=== PATIENT | male | born 1965 | race Caucasian/White ===

== ENCOUNTER → 2016-06-13 | Outpatient (CLI) | payer OTHER ==
[~2016-06-13] VITALS: Ht 170.2 cm; Wt 81.6 kg
[~2016-06-13] MED LIST: LIDOCAINE 2% INJ 100 MG/5 ML SDV (FOR ANES.) As Ordered ONE; NORC5TAB PO; NS 1,000 ML IV SCH; PROPOFOL 200 MG/20 ML VIAL As Ordered ONE; SENN1TAB2 PO
--- NOTE | 2016-06-13 08:24 | ROOR ---
Patient Name: Ezekiel Daniel Procedure Date: 06/13/2016 8:06 AM Date of : 1965 Age: 50 Room: [facility] [place] Gender: Male Note Status: Finalized Procedure: Colonoscopy Indications: Screening for colorectal malignant neoplasm Providers: Brock Simon DO Referring MD: 1. No Referring Physician 1. No Referring Physician, Admin. Requesting Provider: Medicines: Propofol per Anesthesia Complications: No immediate complications. Estimated blood loss: None. Procedure: Pre-Anesthesia Assessment: - Prior to the procedure, a History and Physical was performed, and patient medications and allergies were reviewed. The patient is competent. The risks and benefits of the procedure and the sedation options and risks were discussed with the patient. All questions were answered and informed consent was obtained. Patient identification and proposed procedure were verified by the physician, the nurse, the anesthesiologist and the residential gas heat technician in the endoscopy suite. Mental Status Examination: alert and oriented. Airway Examination: normal oropharyngeal airway and neck mobility. Respiratory Examination: clear to auscultation. CV Examination: normal. Prophylactic Antibiotics: The patient does not require prophylactic antibiotics. Prior Anticoagulants: The patient has taken no previous anticoagulant or antiplatelet agents. ASA Grade Assessment: II - A patient with mild systemic disease. After reviewing the risks and benefits, the patient was deemed in satisfactory condition to undergo the procedure. The anesthesia plan was to use monitored anesthesia care (MAC). Immediately prior to administration of medications, the patient was re-assessed for adequacy to receive sedatives. The heart rate, respiratory rate, oxygen saturations, blood pressure, adequacy of pulmonary ventilation, and response to care were monitored throughout the procedure. The physical status of the patient was re-assessed after the procedure. The Colonoscope was introduced through the anus and advanced to the cecum, identified by the appendiceal orifice, ileocecal valve and palpation. The colonoscopy was performed without difficulty. The patient tolerated the procedure well. Findings: The perianal exam findings include non-thrombosed internal hemorrhoids and internal hemorrhoids (Grade I). The exam was otherwise without abnormality on direct and retroflexion views. Impression: - Non-thrombosed internal hemorrhoids and internal hemorrhoids (Grade I) found on perianal exam. - The examination was otherwise normal on direct and retroflexion views. - No specimens collected. Recommendation: - Patient has a contact number available for emergencies. The signs and symptoms of potential delayed complications were discussed with the patient. Return to normal activities tomorrow. Written discharge instructions were provided to the patient. - Repeat colonoscopy in 5-10 years for screening purposes. - Return to my office PRN. Brock Simon DO 06/13/2016 8:24:47 AM This report has been signed electronically. Number of Addenda: 0 Note Initiated On: 06/13/2016 8:06 AM Estimated Blood Loss: Estimated blood loss: none.
[2016-06-13 08:45] VITALS: BP 133/81
== END ==
LOC: M OPP 07:31
PROVIDERS: ATTEND Surgery
DX: Z12.11 Encounter for screening for malignant neoplasm of colon (principal); K64.0 First degree hemorrhoids; R06.83 Snoring

== ENCOUNTER → 2018-08-20 | Outpatient (CLI) | payer OTHER ==
[~2018-08-20] MED LIST changes: -LIDOCAINE 2% INJ 100 MG/5 ML SDV (FOR ANES.) As Ordered ONE; +NORC1TAB4 PO; -NORC5TAB PO; -NS 1,000 ML IV SCH; -PROPOFOL 200 MG/20 ML VIAL As Ordered ONE
--- NOTE | 2018-08-21 07:12 | REP ---
Clinical : Bilateral inguinal pain. Technique: Real time klein scale ultrasound examination using linear high frequency transducer. Findings: Fat containing right inguinal hernia identified with a peritoneal defect measuring 1.9 cm diameter on Valsalva. There is evidence for prior left inguinal repair with mesh identified. A new small fat containing left inguinal hernia is also identified inferior to the mesh and peritoneal defect measures 1.5 cm maximal diameter on Valsalva. Impression: Evidence for bilateral fat containing inguinal hernias. Evidence of prior left inguinal repair with mesh. Electronically Signed by Dar Smiley MD 08/21/2018 07:04 A
== END ==
LOC: M RAD 06:36
PROVIDERS: ATTEND Surgery
DX: K40.21 Bilateral inguinal hernia, without obstruction or gangrene, recurrent (principal)

== ENCOUNTER → 2018-08-29 | Outpatient (REF) | payer OTHER ==
[2018-08-29 16:40] LABS: BASO # 0.1 10^3/uL (0.0-0.2); BASO % 0.7 % (0.0-1.0); EOS # 0.3 10^3/uL (0.0-0.50); EOS % 3.5 % (0.0-3.0); HEMATOCRIT 45.2 % (42.0-52.0); HEMOGLOBIN 15.6 g/dl (13.5-17.5); LYMPH # 2.4 10^3/uL (1.5-4.5); LYMPH % 28.3 % (24.0-44.0); MEAN CORPUSCULAR HEMOGLOBIN 31.8 pg (27.0-33.0); MEAN CORPUSCULAR HGB CONC 34.5 g/dl (32.0-36.5); MEAN CORPUSCULAR VOLUME 92.2 fl (80.0-96.0); MONO # 0.7 10^3/uL (0.0-0.8); MONO % 7.6 % (0.0-5.0); NEUTROPHILS # 5.1 10^3/uL (1.8-7.7); NEUTROPHILS % 59.4 % (36.0-66.0); PLATELET COUNT, AUTOMATED 312 10^3/uL (150-450); WHITE BLOOD COUNT 8.5 10^3/uL (4.0-10.0)
[2018-08-29 17:01] LABS: BLOOD UREA NITROGEN 12 MG/DL (7-18); CALCIUM LEVEL 9.7 MG/DL (8.5-10.1); CARBON DIOXIDE LEVEL 26 MEQ/L (21-32); CHLORIDE LEVEL 106 MEQ/L (98-107); CREATININE FOR GFR 1.15 MG/DL (0.70-1.30); GLOMERULAR FILTRATION RATE > 60.0 (>56); GLUCOSE, FASTING 104 MG/DL (70-100); POTASSIUM SERUM 4.6 MEQ/L (3.5-5.1); SODIUM LEVEL 140 MEQ/L (136-145)
== END ==
LOC: M LAB REF 16:09
PROVIDERS: ATTEND Family Medicine
DX: K21.9 Gastro-esophageal reflux disease without esophagitis (principal); K40.90 Unilateral inguinal hernia, without obstruction or gangrene, not specified as recurrent; R94.31 Abnormal electrocardiogram [ECG] [EKG]

== ENCOUNTER 2018-09-08 08:28 | Day surgery (SDC) | payer OTHER ==
[~2018-09-08] VITALS: Ht 170.2 cm; Wt 87.9 kg
[~2018-09-08 08:28] MED LIST changes: +LIDOCAINE 2% INJ 100 MG/5 ML SDV (FOR ANES.) As Ordered ONE; +LR 1,000 ML IV ONE; +MIDAZOLAM INJ 2 MG/2 ML VIAL (J2250) As Ordered ONE; -NORC1TAB4 PO; +NORC1TAB7 PO; +ONDANSETRON 4MG/2ML VIAL (J2405) As Ordered ONE; +PROPOFOL 200 MG/20 ML VIAL As Ordered ONE; +ROCURONIUM BROMIDE 50 MG/5 ML VIAL As Ordered ONE; -SENN1TAB2 PO; +SENN1TAB40 PO; +dexameTHASONE 4 MG/ML 1ML VIAL (J1100) As Ordered ONE; +fentaNYL 250 MCG/5 ML INJECTION (J3010) As Ordered ONE
[2018-09-08] MEDS ORDERED: BUPIVACAINE/EPIN 0.25% 30 ML VIAL As Ordered ONE (09:26)
[2018-09-08] MEDS ORDERED: KETOROLAC 60 MG/2 ML VIAL (J1885) As Ordered ONE (10:09)
[2018-09-08] MEDS ORDERED: SUGAMMADEX SODIUM 500 MG/5 ML VIAL (BRIDION) As Ordered ONE (10:35)
[2018-09-08] MEDS ORDERED: HYDROmorphone HCL 2 MG/ML 1ML VIAL (J1170) As Ordered ONE (10:41)
[2018-09-08] MEDS ORDERED: ROCURONIUM BROMIDE 50 MG/5 ML VIAL As Ordered ONE (10:47)
[2018-09-08] MEDS ORDERED: GLYCOPYRROLATE INJ 0.2 MG/ML 2 ML VIAL As Ordered ONE (11:44)
[2018-09-08] MEDS ORDERED: METOCLOPRAMIDE INJ 10MG/2ML VIAL (J2765) IV PRN (12:30)
[2018-09-08] MEDS ORDERED: ONDANSETRON 4MG/2ML VIAL (J2405) IV PRN (12:30)
[2018-09-08] MEDS ORDERED: LR 1,000 ML IV SCH (12:30)
[2018-09-08] MEDS ORDERED: MEPERIDINE INJ 25 MG/ML VIAL (J2175) IV PRN (12:30)
[2018-09-08] MEDS ORDERED: fentaNYL 100 MCG/2 ML INJECTION (J3010) IV PRN (12:30)
[2018-09-08] MEDS: PERCOCET 5MG/325MG TAB PO PRN ×2 (12:37→13:06)
[2018-09-08] MEDS ORDERED: NORCO, ANEXSIA 5/325MG TABLET (HYDROcodone/ACETAMINOPHEN) PO PRN (12:45)
--- NOTE | 2018-09-08 13:16 | RO ---
DATE OF PROCEDURE: 09/08/2018 PREOPERATIVE DIAGNOSIS: Recurrent left inguinal hernia. POSTOPERATIVE DIAGNOSIS: Recurrent left inguinal hernia. PROCEDURE: Robotic repair of recurrent left inguinal hernia. SURGEON: Dr. Brokc Simon ASSIST: Xochitl Hendrix ANESTHESIA: General. ESTIMATED BLOOD LOSS: 5 mL. COMPLICATIONS: None. INDICATIONS FOR PROCEDURE: Patient is a 53-year-old male, presents with a recurrent hernia in his left groin. Recommendation was to proceed with robotic repair. Risks and benefits of procedure not limited to but including bleeding, infection, hernia recurrence, hernia formation, damage to surrounding structures, need for further surgery were discussed in detail with the patient. Informed consent was obtained, and procedure was planned. DESCRIPTION OF PROCEDURE: Patient brought back to operating room 7. After sufficient sedation, a Muller catheter was placed. Next, the abdomen was sterilely prepped and draped. Time-out was done to confirm proper patient, proper procedure. Following that, a stab incision was made in left upper quadrant, Veress needle inserted, and the abdomen was insufflated 15 mmHg. Next, an 8 mm supraumbilical midline incision made, 8 mm robotic port was placed. Veress needle site was examined. There were no so signs of any injury. Two more 0.8 mm robotic ports were placed in left and right midabdomen. Next, the robot was connected to the ports and targeted to the pelvis. Once that was completed, from the console I evaluated the left groin. There was an obvious large defect going inferior to the mesh. The mesh could be seen easily through the peritoneum, that was very thin layer covering it. There was also some sigmoid colon that adhered down into the hernia sac. First, the sigmoid colon was dissected free and mobilized out of the way. Next, I attempted to open the peritoneum overlying the mesh but it was too complicated. It was adhered very densely, so starting medially, I was able to create a pocket into the preperitoneal space. I was able to identify the inferior epigastric vessel, the vas deferens, and the pubic symphysis. I worked laterally from there, carefully dissected free all the hernia sac and freed it up from all the cord structures. Once everything was identified, I used #2-0 V-Loc suture to close some of the indirect defect with the mesh that was invaginating down into there. It was very close to the iliac vessels, so I was unable to close it completely, but I was able to get it partially closed. Next, I took a medium-sized Bard #3-D Max mesh, placed it inside of there, sutured it to the pubic symphysis, also sutured it to the old mesh superiorly and laterally to hold it in place, then another #2-0 V-Loc suture was used to close the peritoneum overlying the mesh. Once this was all completed, the abdomen was desufflated. Skin incisions were closed with #4-0 Vicryl subcuticular sutures. The abdomen was cleaned and dried. Steri-Strips 4x4 and tape were applied thus ending procedure.
[2018-09-08 15:28] VITALS: BP 131/70
== END 2018-09-08 15:34 | disposition home or self-care (01) ==
LOC: M SDC 08:28
PROVIDERS: ATTEND Surgery
DX: K40.91 Unilateral inguinal hernia, without obstruction or gangrene, recurrent (principal); K21.9 Gastro-esophageal reflux disease without esophagitis
CPT/HCPCS: 49650; C1781; J0690; J1100; J1170; J1885; J2250; J2405; J3010

== ENCOUNTER 2022-11-21 12:16 | Inpatient (IN) | payer OTHER ==
[2022-11-21] VITALS (13 sets, daily range): BP systolic 134–154; BP diastolic 67–89; TEMP 97.1–98.3; O2SAT 96–100
[~2022-11-21] VITALS: Ht 171.4 cm; Wt 84.7 kg
[~2022-11-21 12:16] MED LIST changes: -LIDOCAINE 2% INJ 100 MG/5 ML SDV (FOR ANES.) As Ordered ONE; -LR 1,000 ML IV ONE; -MIDAZOLAM INJ 2 MG/2 ML VIAL (J2250) As Ordered ONE; -ONDANSETRON 4MG/2ML VIAL (J2405) As Ordered ONE; -PROPOFOL 200 MG/20 ML VIAL As Ordered ONE; -ROCURONIUM BROMIDE 50 MG/5 ML VIAL As Ordered ONE; +SENN-53 PO; -SENN1TAB40 PO; -dexameTHASONE 4 MG/ML 1ML VIAL (J1100) As Ordered ONE; -fentaNYL 250 MCG/5 ML INJECTION (J3010) As Ordered ONE
[2022-11-21 15:28] LABS: MEAN CORPUSCULAR HEMOGLOBIN 32.9 pg (27.0-33.0); MEAN CORPUSCULAR HGB CONC 35.3 g/dl (32.0-36.5); MEAN CORPUSCULAR VOLUME 93.2 fl (80.0-96.0); RED BLOOD COUNT 1.46 10^6/uL (4.30-6.10); WHITE BLOOD COUNT 4.1 10^3/uL (4.0-10.0)
[2022-11-21 15:45] LABS: HEMATOCRIT 13.6 % (42.0-52.0); HEMOGLOBIN 4.8 g/dl (13.5-17.5)
[2022-11-21 15:46] LABS: PLATELET COUNT, AUTOMATED 5 10^3/uL (150-450)
[2022-11-21 15:55] LABS: ALBUMIN 4.4 G/DL (3.2-5.2); ALKALINE PHOSPHATASE 157 U/L (46-116); ALT/SGPT 53 U/L (7.0-40); AST/SGOT 25 U/L (<34); BILIRUBIN,TOTAL 0.8 MG/DL (0.3-1.2); BLOOD UREA NITROGEN 21 MG/DL (9-23); CALCIUM LEVEL 10.3 MG/DL (8.5-10.1); CARBON DIOXIDE LEVEL 26 MMOL/L (20-31); CHLORIDE LEVEL 106 MMOL/L (98-107); CREATININE FOR GFR 1.23 MG/DL (0.70-1.30); GLOMERULAR FILTRATION RATE > 60.0 (>56); GLUCOSE, FASTING 95 MG/DL (60-100); POTASSIUM SERUM 4.2 MMOL/L (3.5-5.1); SODIUM LEVEL 140 MMOL/L (136-145); TOTAL PROTEIN 7.3 G/DL (5.7-8.2)
[2022-11-21 16:10] LABS: ATYPICAL LYMPH 12 % (0-5); BLAST CELLS 11 % (0-0); EOSINOPHILS 5 % (0-3); LYMPHOCYTES 61 % (16-44); MONOCYTES 2 % (0-5); NEUTROPHILS 9 % (28-66); PLATELET ESTIMATE MARKED DECREASE (NORMAL)
[2022-11-21 16:12] LABS: ANISOCYTOSIS 2+; MICROCYTOSIS 1+; POLYCHROMASIA 1+
[2022-11-21] MEDS ORDERED: FUROSEMIDE 40MG/4ML VIAL IV ONE (17:00)
[2022-11-21 17:14] LABS: FERRITIN 732.6 NG/ML (10.5-307.3)
[2022-11-21 17:15] LABS: FOLATE 13.53 NG/ML (>5.4)
[2022-11-22 00:05] VITALS: BP 158/81; TEMP 97.2; O2SAT 97
[2022-11-22 00:20] VITALS: BP 156/84; TEMP 97.5; O2SAT 96
[2022-11-22 00:40] VITALS: BP 148/79; TEMP 97.4; O2SAT 96
[2022-11-22 01:40] VITALS: BP 148/79; TEMP 98.4; O2SAT 97
[2022-11-22 02:53] LABS: MEAN CORPUSCULAR HEMOGLOBIN 32.5 pg (27.0-33.0); MEAN CORPUSCULAR HGB CONC 35.9 g/dl (32.0-36.5); MEAN CORPUSCULAR VOLUME 90.5 fl (80.0-96.0); RED BLOOD COUNT 2.31 10^6/uL (4.30-6.10); WHITE BLOOD COUNT 3.8 10^3/uL (4.0-10.0)
[2022-11-22 02:56] LABS: HEMATOCRIT 20.9 % (42.0-52.0)
[2022-11-22 02:57] LABS: HEMOGLOBIN 7.5 g/dl (13.5-17.5); PLATELET COUNT, AUTOMATED 25 10^3/uL (150-450)
[2022-11-22 03:15] LABS: BLAST CELLS 10 % (0-0); EOSINOPHILS 1 % (0-3); LYMPHOCYTES 77 % (16-44); MONOCYTES 2 % (0-5); NEUTROPHILS 10 % (28-66)
[2022-11-22 03:16] LABS: PLATELET ESTIMATE MARKED DECREASE (NORMAL)
[2022-11-22 03:21] LABS: ANISOCYTOSIS 1+; MICROCYTOSIS 1+
[2022-11-22 04:00] VITALS: BP 141/74; TEMP 98.6; O2SAT 97
== END 2022-11-22 09:52 | disposition other institution (70) | DRG 835 ==
LOC: M PCU 14:16
PROVIDERS: ADMIT Internal Medicine Nephrology; ATTEND Internal Medicine Nephrology
PROC: 30233N1 Transfusion of Nonautologous Red Blood Cells into Peripheral Vein, Percutaneous Approach (ICD-10-PCS; principal; 2022-11-21)
PROC: 30233R1 Transfusion of Nonautologous Platelets into Peripheral Vein, Percutaneous Approach (ICD-10-PCS; 2022-11-21)
DX: C91.00 Acute lymphoblastic leukemia not having achieved remission (principal); D61.818 Other pancytopenia; K21.9 Gastro-esophageal reflux disease without esophagitis

== ENCOUNTER 2023-03-24 20:03 | Emergency (ER) | payer OTHER ==
[~2023-03-24] VITALS: Ht 170.2 cm; Wt 81.8 kg
[~2023-03-24 20:03] MED LIST changes: +ACYC1TAB PO; +BACTDSTA PO; +CEFA2INJ4 IV; +FAMO1TAB11 PO; +GOOD8.6T2 PO; +ONDA-83 PO; +POLY510P14 PO
[2023-03-24] MEDS ORDERED: [UNRECOGNIZED DRUG - CODE] (20:11)
[2023-03-24] MEDS ORDERED: LEVO1TAB39 (20:11)
[2023-03-24 21:36] LABS: EOS # 0.1 10^3/uL (0.0-0.5); EOS % 16.7 % (0.0-3.0); LYMPH # 0.3 10^3/uL (1.5-5.0); LYMPH % 72.2 % (24.0-44.0); MEAN CORPUSCULAR HEMOGLOBIN 34.7 pg (27.0-33.0); MONO % 8.3 % (2.0-8.0); NEUTROPHILS % 2.8 % (36.0-66.0); RED BLOOD COUNT 2.02 10^6/uL (4.30-6.10)
[2023-03-24 21:40] LABS: WHITE BLOOD COUNT 0.4 10^3/uL (4.0-10.0)
[2023-03-24 21:41] LABS: PLATELET COUNT, AUTOMATED 5 10^3/uL (150-450)
[2023-03-24 22:02] LABS: INR 1.05; PROTHROMBIN TIME 13.4 SECONDS (12.5-14.5)
[2023-03-24 22:03] LABS: PARTIAL THROMBOPLASTIN TIME 27.7 SECONDS (24.8-34.2)
[2023-03-24 23:56] VITALS: BP 148/68; TEMP 97.9; O2SAT 98
[2023-03-25 01:40] VITALS: BP 120/59; TEMP 98.6; O2SAT 99
== END 2023-03-25 01:47 | disposition home or self-care (01) ==
LOC: M ED 20:03
DX: D61.818 Other pancytopenia (principal); K21.9 Gastro-esophageal reflux disease without esophagitis; F10.10 Alcohol abuse, uncomplicated; Z87.442 Personal history of urinary calculi; Z79.83 Long term (current) use of bisphosphonates; Z79.899 Other long term (current) drug therapy
CPT/HCPCS: 36415; 36430; 85025; 85049; 85055; 85610; 85730; 86850; 86900; 86901; 99284; P9034

== ENCOUNTER 2024-01-23 06:07 | Day surgery (SDC) | payer OTHER ==
[~2024-01-23] VITALS: Ht 170.2 cm; Wt 79.7 kg
[~2024-01-23 06:07] MED LIST changes: +ASCI40TA PO; +LEVO1TAB39 PO; +PANT40TA29 PO; +[UNRECOGNIZED DRUG - CODE] IV; +[UNRECOGNIZED DRUG - CODE] PO
[2024-01-23] MEDS ORDERED: LR 1,000 ML IV SCH (06:10)
[2024-01-23] MEDS ORDERED: ONDANSETRON 4MG 2ML VIAL As Ordered ONE (07:16)
[2024-01-23] MEDS ORDERED: fentaNYL 100 MCG/2 ML INJECTION As Ordered ONE (07:16)
[2024-01-23] MEDS ORDERED: LIDOCAINE 2% 100MG/5ML SDV (FOR ANES.) As Ordered ONE (07:16)
[2024-01-23] MEDS ORDERED: propofoL 200 MG/20 ML VIAL As Ordered ONE (07:16)
[2024-01-23] MEDS ORDERED: ROCURONIUM BROMIDE 50MG/5ML VIAL As Ordered ONE (07:16)
[2024-01-23] MEDS ORDERED: MIDAZOLAM INJ 2MG/2ML VIAL As Ordered ONE (07:16)
[2024-01-23] MEDS: ceFAZolin SOD 2 GM in IV 1 EA IV ONE (07:50)
[2024-01-23] MEDS ORDERED: dexmedeTOMIDine (4MCG/ML)200MCG/50ML BTL (PRECEDEX) As Ordered ONE (07:55)
[2024-01-23] MEDS ORDERED: ACETAMINOPHEN 1000MG 100ML IV BAG As Ordered ONE (07:58)
[2024-01-23] MEDS ORDERED: SUGAMMADEX SODIUM 500 MG/5 ML VIAL (BRIDION) As Ordered ONE (08:22)
[2024-01-23] MEDS ORDERED: KETOROLAC 60MG 2ML VIAL As Ordered ONE (08:22)
[2024-01-23] MEDS ORDERED: ONDANSETRON 4MG 2ML VIAL IV PRN (09:25)
[2024-01-23] MEDS ORDERED: oxyCODONE 5MG TAB PO PRN (09:25)
[2024-01-23] MEDS ORDERED: fentaNYL 100 MCG/2 ML INJECTION IV PRN (09:25)
[2024-01-23] MEDS ORDERED: NORCO, ANEXSIA 5/325MG TABLET (HYDROcodone/ACETAMINOPHEN) PO PRN (10:05)
[2024-01-23 11:00] VITALS: BP 132/7; TEMP 97; O2SAT 96
== END 2024-01-23 11:09 | disposition home or self-care (01) ==
LOC: M SDC 06:07
PROVIDERS: ATTEND Surgery
DX: K40.30 Unilateral inguinal hernia, with obstruction, without gangrene, not specified as recurrent (principal); D17.6 Benign lipomatous neoplasm of spermatic cord; C92.11 Chronic myeloid leukemia, BCR/ABL-positive, in remission; Z79.899 Other long term (current) drug therapy; Z92.21 Personal history of antineoplastic chemotherapy; K21.9 Gastro-esophageal reflux disease without esophagitis
CPT/HCPCS: 49650; 88304; C1781; J0131; J0665; J0690; J1100; J1885; J2250; J2405; J3010; S2900

== ENCOUNTER → 2024-02-20 | Outpatient (CLI) | payer OTHER ==
[2024-02-20 09:17] LABS: BASO # 0.1 10^3/uL (0.0-0.2); BASO % 0.9 % (0.0-1.0); EOS # 0.3 10^3/uL (0.0-0.5); EOS % 2.9 % (0.0-3.0); HEMATOCRIT 39.7 % (42.0-52.0); HEMOGLOBIN 12.9 g/dl (13.5-17.5); LYMPH # 0.7 10^3/uL (1.5-5.0); LYMPH % 7.9 % (24.0-44.0); MEAN CORPUSCULAR HEMOGLOBIN 30.6 pg (27.0-33.0); MEAN CORPUSCULAR HGB CONC 32.5 g/dl (32.0-36.5); MEAN CORPUSCULAR VOLUME 94.3 fl (80.0-96.0); MONO % 10.7 % (2.0-8.0); NEUTROPHILS % 76.2 % (36.0-66.0); PLATELET COUNT, AUTOMATED 277 10^3/uL (150-450); RED BLOOD COUNT 4.21 10^6/uL (4.30-6.10); WHITE BLOOD COUNT 9.1 10^3/uL (4.0-10.0)
[2024-02-20 09:43] LABS: ALBUMIN 3.5 G/DL (3.2-5.2); ALKALINE PHOSPHATASE 133 U/L (46-116); ALT/SGPT 30 U/L (7.0-40); AST/SGOT 17 U/L (<34); BILIRUBIN,TOTAL 0.8 MG/DL (0.3-1.2); BLOOD UREA NITROGEN 11 MG/DL (9-23); CALCIUM LEVEL 9.7 MG/DL (8.5-10.1); CARBON DIOXIDE LEVEL 28 MMOL/L (20-31); CHLORIDE LEVEL 109 MMOL/L (98-107); CREATININE FOR GFR 0.87 MG/DL (0.70-1.30); GLOMERULAR FILTRATION RATE > 60.0 (>56); GLUCOSE, FASTING 98 MG/DL (60-100); POTASSIUM SERUM 4.4 MMOL/L (3.5-5.1); SODIUM LEVEL 141 MMOL/L (136-145); TOTAL PROTEIN 6.3 G/DL (5.7-8.2)
== END ==
LOC: M LAB 08:02
PROVIDERS: ATTEND Physician Assistant
DX: C91.00 Acute lymphoblastic leukemia not having achieved remission (principal)

== ENCOUNTER → 2024-03-20 | Outpatient (CLI) | payer OTHER ==
[2024-03-20 10:10] LABS: BASO # 0.1 10^3/uL (0.0-0.2); BASO % 0.6 % (0.0-1.0); EOS # 0.2 10^3/uL (0.0-0.5); HEMATOCRIT 38.4 % (42.0-52.0); HEMOGLOBIN 12.5 g/dl (13.5-17.5); LYMPH # 0.8 10^3/uL (1.5-5.0); LYMPH % 9.7 % (24.0-44.0); MEAN CORPUSCULAR HEMOGLOBIN 31.6 pg (27.0-33.0); MEAN CORPUSCULAR HGB CONC 32.6 g/dl (32.0-36.5); MONO # 1.1 10^3/uL (0.0-0.8); MONO % 13.7 % (2.0-8.0); NEUTROPHILS # 5.9 10^3/uL (1.5-8.5); NEUTROPHILS % 72.6 % (36.0-66.0); PLATELET COUNT, AUTOMATED 277 10^3/uL (150-450); RED BLOOD COUNT 3.96 10^6/uL (4.30-6.10); WHITE BLOOD COUNT 8.1 10^3/uL (4.0-10.0)
[2024-03-20 10:45] LABS: ALBUMIN 3.3 G/DL (3.2-5.2); ALKALINE PHOSPHATASE 124 U/L (46-116); ALT/SGPT 48 U/L (7.0-40); AST/SGOT 21 U/L (<34); BILIRUBIN,TOTAL 0.7 MG/DL (0.3-1.2); BLOOD UREA NITROGEN 10 MG/DL (9-23); CALCIUM LEVEL 9.5 MG/DL (8.5-10.1); CARBON DIOXIDE LEVEL 28 MMOL/L (20-31); CHLORIDE LEVEL 110 MMOL/L (98-107); GLOMERULAR FILTRATION RATE > 60.0 (>56); GLUCOSE, FASTING 111 MG/DL (60-100); LDH LACTATE DEHYDROGENASE 194 U/L (120-246); POTASSIUM SERUM 4.2 MMOL/L (3.5-5.1); SODIUM LEVEL 140 MMOL/L (136-145); TOTAL PROTEIN 5.9 G/DL (5.7-8.2)
== END ==
LOC: M LAB 09:24
PROVIDERS: ATTEND Nurse Practitioner
DX: C91.00 Acute lymphoblastic leukemia not having achieved remission (principal)

== ENCOUNTER 2024-04-10 08:08 | Inpatient (IN) | payer OTHER ==
[~2024-04-10] VITALS: Ht 170.2 cm; Wt 79.2 kg
[~2024-04-10 08:08] MED LIST changes: -GOOD8.6T2 PO; +SENN-117 PO
[2024-04-10] MEDS ORDERED: ASPI81CH33 PO (08:19)
[2024-04-10 09:00] LABS: VENOUS O2 SATURATION 84.1 % (60.0-80.0); VENOUS PARTIAL PRESSURE CO2 37.9 mmHg (38.0-50.0); VENOUS PARTIAL PRESSURE O2 45.7 mmHg (30.0-50.0); VENOUS PH 7.438 UNITS (7.330-7.430); VENOUS STANDARD HCO3 25.1 MMOL/L; VENOUS TOTAL CO2 26.2 MMOL/L (24.0-28.0)
[2024-04-10] MEDS: cefTRIAXone SOD 2 GM in DEXTROSE 5% (D5W) ADV/MINI-BAG 50 ML IV ONE (09:02)
[2024-04-10] MEDS: ACETAMINOPHEN 325 MG TAB PO ONE (09:02)
[2024-04-10] MEDS: NS 2,450 ML in IV 1 EA IV ONE (09:02)
[2024-04-10 09:14] LABS: BASO # 0.1 10^3/uL (0.0-0.2); BASO % 0.3 % (0.0-1.0); EOS # 0.1 10^3/uL (0.0-0.5); EOS % 0.4 % (0.0-3.0); HEMATOCRIT 39.7 % (42.0-52.0); HEMOGLOBIN 13.3 g/dl (13.5-17.5); LYMPH # 0.6 10^3/uL (1.5-5.0); LYMPH % 1.9 % (24.0-44.0); MEAN CORPUSCULAR HEMOGLOBIN 31.8 pg (27.0-33.0); MEAN CORPUSCULAR HGB CONC 33.5 g/dl (32.0-36.5); MONO # 1.4 10^3/uL (0.0-0.8); MONO % 4.6 % (2.0-8.0); NEUTROPHILS % 88.6 % (36.0-66.0); PLATELET COUNT, AUTOMATED 326 10^3/uL (150-450); RED BLOOD COUNT 4.18 10^6/uL (4.30-6.10)
[2024-04-10 09:18] LABS: WHITE BLOOD COUNT 31.6 10^3/uL (4.0-10.0)
[2024-04-10 09:25] LABS: ALBUMIN 2.4 G/DL (3.2-5.2); ALKALINE PHOSPHATASE 229 U/L (40-129); ALT/SGPT 62 U/L (7.0-40); AST/SGOT 16 U/L (<34); BILIRUBIN,DIRECT 0.5 MG/DL (<0.4); BLOOD UREA NITROGEN 11 MG/DL (9-23); CALCIUM LEVEL 9.1 MG/DL (8.5-10.1); CARBON DIOXIDE LEVEL 24 MMOL/L (20-31); CHLORIDE LEVEL 104 MMOL/L (98-107); CREATININE FOR GFR 0.68 MG/DL (0.70-1.30); GLOMERULAR FILTRATION RATE > 60.0 (>56); GLUCOSE, FASTING 125 MG/DL (60-100); POTASSIUM SERUM 4.3 MMOL/L (3.5-5.1); SODIUM LEVEL 138 MMOL/L (136-145)
[2024-04-10] MEDS ORDERED: ISOVUE-370 76% 100ML VIAL As Ordered ONE (10:00)
[2024-04-10 10:13] LABS: PROCALCITONIN 0.54 ng/ml
[2024-04-10] MEDS ORDERED: PRED20TA PO (11:21)
[2024-04-10] MEDS ORDERED: ONDA-83 PO (11:26)
[2024-04-10] MEDS ORDERED: HOME MED LIST COMPLETE! XX SCH (11:30)
[2024-04-10] MEDS: DOXYCYCLINE HYCLATE 100MG TABLET PO SCH (12:19)
[2024-04-10 13:00] VITALS: BP 127/66; TEMP 97; O2SAT 95
[2024-04-10] MEDS: PANTOPRAZOLE 40MG TAB (PROTONIX) PO SCH (13:46)
[2024-04-10 13:52] LABS: LDH LACTATE DEHYDROGENASE 363 U/L (120-246)
[2024-04-10] MEDS: PIPERACILLIN/TAZOBACTAM SOD 4.5 GM in DEXTROSE 5% (D5W) ADV/MINI-BAG 50 ML IV SCH (15:58)
[2024-04-10 15:59] LABS: PH BODY FLUID 7.599 UNITS (NOT ESTABLISHED); SOURCE, BODY FLUID pH PLEURAL
[2024-04-10 16:00] VITALS: BP 122/55; TEMP 97.5; O2SAT 94
[2024-04-10] MEDS: LEVALBUTEROL 1.25MG 0.5ML CONCENTRATE NEB INH SCH (16:07)
[2024-04-10 16:11] LABS: APPEARANCE, BODY FLUID CLOUDY (CLEAR); PLEURAL FL COLOR AMBER (COLORLESS); SOURCE, BODY FLUID PLEURAL
[2024-04-10 17:46] LABS: AMYLASE, BODY FLUID < 20 U/L (NOT ESTABLISHED); CHOLESTEROL, BODY FLUID 92 MG/DL (NOT ESTABLISHED); SOURCE, BODY FLUID AMYLASE PLEURAL; SOURCE, BODY FLUID CHOL PLEURAL; SOURCE, BODY FLUID GLUCOSE PLEURAL; SOURCE, BODY FLUID TOT PROTEIN PLEURAL; SOURCE, BODY FLUID TRIG PLEURAL; TOTAL PROTEIN, BODY FLUID 2.6 G/DL (NOT ESTABLISHED); TRIGLYCERIDE, BODY FLUID 40 MG/DL (NOT ESTABLISHED)
[2024-04-10 18:00] LABS: LDH, BODY FLUID 295 U/L (NOT ESTABLISHED); SOURCE, BODY FLUID LDH PLEURAL
[2024-04-10 19:54] VITALS: BP 118/60; TEMP 98.5; O2SAT 92
[2024-04-10] MEDS: ACYCLOVIR 200 MG CAPSULE PO SCH (21:11)
[2024-04-10] MEDS: oxyCODONE 5MG TAB PO PRN (21:12)
[2024-04-11] VITALS (15 sets, daily range): BP systolic 109–123; BP diastolic 56–69; TEMP 97.4–99; O2SAT 89–94
[2024-04-11 05:59] LABS: BASO # 0.1 10^3/uL (0.0-0.2); BASO % 0.3 % (0.0-1.0); EOS # 0.2 10^3/uL (0.0-0.5); EOS % 0.9 % (0.0-3.0); LYMPH # 0.5 10^3/uL (1.5-5.0); LYMPH % 2.9 % (24.0-44.0); MEAN CORPUSCULAR HEMOGLOBIN 31.6 pg (27.0-33.0); MEAN CORPUSCULAR HGB CONC 33.3 g/dl (32.0-36.5); MEAN CORPUSCULAR VOLUME 94.9 fl (80.0-96.0); MONO # 1.2 10^3/uL (0.0-0.8); MONO % 6.5 % (2.0-8.0); NEUTROPHILS # 15.9 10^3/uL (1.5-8.5); NEUTROPHILS % 84.4 % (36.0-66.0); PLATELET COUNT, AUTOMATED 270 10^3/uL (150-450); RED BLOOD COUNT 3.16 10^6/uL (4.30-6.10); WHITE BLOOD COUNT 18.8 10^3/uL (4.0-10.0)
[2024-04-11 06:11] LABS: BLOOD UREA NITROGEN 11 MG/DL (9-23); CALCIUM LEVEL 8.5 MG/DL (8.5-10.1); CARBON DIOXIDE LEVEL 26 MMOL/L (20-31); CHLORIDE LEVEL 109 MMOL/L (98-107); CREATININE FOR GFR 0.73 MG/DL (0.70-1.30); GLOMERULAR FILTRATION RATE > 60.0 (>56); GLUCOSE, FASTING 97 MG/DL (60-100); MAGNESIUM LEVEL 2.1 MG/DL (1.8-2.4); SODIUM LEVEL 141 MMOL/L (136-145)
[2024-04-11] MEDS ORDERED: cefTRIAXone SOD 2 GM in DEXTROSE 5% (D5W) ADV/MINI-BAG 50 ML IV SCH (09:00)
[2024-04-11] MEDS: oxyCODONE 5MG TAB PO PRN (16:07)
[2024-04-11] MEDS: ENOXAPARIN 40MG/0.4ML SYRINGE (J1650 PER 10MG) SC SCH (21:47)
[2024-04-12 03:13] VITALS: BP 106/60; TEMP 98.2; O2SAT 92
[2024-04-12 06:24] LABS: HEMATOCRIT 31.4 % (42.0-52.0); MEAN CORPUSCULAR HEMOGLOBIN 30.8 pg (27.0-33.0); MEAN CORPUSCULAR HGB CONC 31.8 g/dl (32.0-36.5); MEAN CORPUSCULAR VOLUME 96.6 fl (80.0-96.0); PLATELET COUNT, AUTOMATED 281 10^3/uL (150-450); RED BLOOD COUNT 3.25 10^6/uL (4.30-6.10); WHITE BLOOD COUNT 16.9 10^3/uL (4.0-10.0)
[2024-04-12 06:46] LABS: BLOOD UREA NITROGEN 8 MG/DL (9-23); CALCIUM LEVEL 8.7 MG/DL (8.5-10.1); CARBON DIOXIDE LEVEL 27 MMOL/L (20-31); CHLORIDE LEVEL 108 MMOL/L (98-107); CREATININE FOR GFR 0.75 MG/DL (0.70-1.30); GLOMERULAR FILTRATION RATE > 60.0 (>56); GLUCOSE, FASTING 107 MG/DL (60-100); POTASSIUM SERUM 4.3 MMOL/L (3.5-5.1); SODIUM LEVEL 141 MMOL/L (136-145)
[2024-04-12 07:23] LABS: ATYPICAL LYMPH 3 % (0-5); BASOPHILS 1 % (0-1); EOSINOPHILS 1 % (0-3); LYMPHOCYTES 4 % (16-44); MONOCYTES 10 % (0-5); NEUTROPHILS 80 % (28-66); PLATELET ESTIMATE NORMAL (NORMAL); POLYCHROMASIA 1+
[2024-04-12 07:24] LABS: ANISOCYTOSIS 1+
[2024-04-12 07:54] VITALS: BP 112/66; TEMP 98; O2SAT 92
[2024-04-12] MEDS ORDERED: AMOX500T PO (10:01)
[2024-04-12 12:40] VITALS: BP 105/66; TEMP 98.2; O2SAT 94
[2024-04-12] MEDS ORDERED: AMOXICILLIN 500 MG CAP PO SCH (14:00)
[2024-04-12] MEDS ORDERED: AMOXICILLIN SUSP 250MG/5ML 100ML BOTTLE (FOR INPATIENT ORDERS) PO SCH (14:00)
[2024-04-13] MEDS ORDERED: BACTRIM 160MG/800MG DS TAB PO SCH (15:00)
[2024-04-13 17:57] LABS: URINE STREP PNEUMONIAE ANTIGEN NOT DETECTED (NOT DETECT)
== END 2024-04-12 13:15 | disposition home or self-care (01) | DRG 194 ==
LOC: M ED 08:08 → M ED INP 11:51 → M PCU 13:02
PROVIDERS: ADMIT Student in an Organized Health Care Education/Training Program; ATTEND Student in an Organized Health Care Education/Training Program
PROC: 0W993ZZ Drainage of Right Pleural Cavity, Percutaneous Approach (ICD-10-PCS; principal; 2024-04-10 14:00)
DX: J14 Pneumonia due to Hemophilus influenzae (principal); J90 Pleural effusion, not elsewhere classified; C95.91 Leukemia, unspecified, in remission; J93.81 Chronic pneumothorax; D84.9 Immunodeficiency, unspecified; K21.9 Gastro-esophageal reflux disease without esophagitis; Z79.899 Other long term (current) drug therapy; Z79.82 Long term (current) use of aspirin

== ENCOUNTER → 2025-02-11 | Outpatient (CLI) | payer OTHER ==
[~2025-02-11] MED LIST changes: +ACYC-438 PO; -ACYC1TAB PO; +AMOX500T PO; +ASPI81CH33 PO; +PRED20TA PO
== END ==
LOC: M RAD 06:58
PROVIDERS: ATTEND Internal Medicine Pulmonary Disease
DX: R91.8 Other nonspecific abnormal finding of lung field (principal); J90 Pleural effusion, not elsewhere classified